=== PATIENT | male | born 1990 | race African-American/Black ===

== ENCOUNTER 2021-01-12 10:05 | Emergency (ER) | payer OTHER ==
--- NOTE | 2021-01-12 10:59 | EDM.PDOC ---
ED HPI GENERAL MEDICAL PROBLEM - General Chief Complaint: General Stated Complaint: SWELLING ABOVE THE KNEE DOWN Time Seen by Provider: 01/12/21 10:08 Source of Information: Reports: Patient History Limitations: Reports: No Limitations - History of Present Illness INITIAL COMMENTS - FREE TEXT/NARRATIVE: HISTORY AND PHYSICAL: History of present illness: Patient is a 30-year-old male, with a history of hypertension, who presents emergency room today with concern of bilateral lower extremity edema and pain x2 to 3 days. Patient states that he first noticed the swelling when he woke up 2 to 3 days ago and states that since then, the swelling has been getting worse and is now become painful. Patient states that he also has eczema and states that he has eczema overlying his legs but states that this is not new or changed. Patient states that he has noticed a little bit of redness on his inner thighs. Patient denies any trauma or injury. Patient denies any other symptoms or concerns. Patient states that he is on blood pressure medications but has not been taking these well over the past 2 weeks as he is "low on supply ". Denies orthopnea or PND. Denies cough. Patient denies fever, chills, chest pain, shortness of breath, or cough. Denies headache, neck stiff ness, change in vision, syncope, or near syncope. Denies nausea, vomiting, abdominal pain, diarrhea, constipation, or dysuria. Has not noted any blood in urine or stool. Patient has been eating and drinking appropriately. Review of systems: As per history of present illness and below otherwise all systems reviewed and negative. Past medical history: As per history of present illness and as reviewed below otherwise noncontributory. Surgical history: As per history of present illness and as reviewed below otherwise noncontributory. Social history: See social history for further information Family history: As per history of present illness and as reviewed below otherwise noncontribut ory. Physical exam: General: Patient is alert, oriented, and in no acute distress. Patient sitting comfortably on exam table. Vitals stable and reviewed by me. HEENT: Atraumatic, normocephalic, pupils equal and reactive bilaterally, negative for conjunctival pallor or scleral icterus, mucous membranes moist, TMs normal bilaterally, throat clear, neck supple, nontender, trachea midline. No drooling or trismus noted. No meningeal signs. No hot potato voice noted. Lungs: Clear to auscultation, breath sounds equal bilaterally, chest nontender. Heart: S1S2, regular rate and rhythm without overt murmur Abdomen: Soft, nondistended, nontender. Negative for masses or hepatosplenomegaly. Negative for costovertebral tenderness. Pelvis: Stable nontender. Genitourinary: Deferred. Rectal: Deferred. Skin: Intact, warm, dry. No lesions or rashes noted. Extremities: Bilateral 2+ pitting edema to the knees. DP/PT pulses intact via doppler bilaterally. Overlying diffuse eczema noted of the bilateral LE and UE with various areas of excoriation. Erythema difficult to assess due to eczema and darker skin complexion. Full ROM of bilateral extremities without pain or difficulty. Otherwise, Atraumatic, negative for cords or calf pain. Neurovascular unremarkable. Neuro: Awake, alert, oriented. Cranial nerves II through XII unremarkable. Cerebellum unremarkable. Motor and sensory unremarkable throughout. Exam nonfocal. Notes: Patient is a 30-year-old male who presents emergency room today secondary to 2 to 3-day history of bilateral lower extremity edema and pain. Upon arrival to the ED, patient is vitally stable and well-appearing on exam. Patient does have 2+ pitting edema of bilateral lower extremities to the knees but is otherwise neurovascularly intact. Patient does have overlying diffuse eczema of his lower extremities which does make assessment for erythema more difficult and patient is of darker complexion which is also limiting assessment for possible erythema, however, no increase in warmth noted on exam. Will obtain cardiac evaluation and bilateral LE US r/o DVT. See Dr. Lara's dictation for specific EKG interpretation. Otherwise, NSR without STEMI. CBC shows hemoglobin elevation at 12.9, eosinophil percent at 8.4 which is increased, otherwise mild arrangements of CBC unremarkable. CMP shows an elevation of BUN at 20, otherwise mild derangements of CMP unremarkable. Troponin negative. BNP within normal limits at 6. TSH mild elevation at 4.39 with free T4 WNL at .83. UA clear. Lower extremity Doppler ultrasound is negative bilateral lower extremity venous Doppler study. Edema in both calves noted with 2 prominent left inguinal nodes, likely reactive. Chest x-ray shows increased interstitial markings which may represent central bronchial thickening and or pulmonary vascular congestion. No dense consolidation appreciated. Upon reevaluation of patient, he remains vitally stable and comfortable throughout stay in ED. He does not have any chest pain or shortness of breath and is able to lay back and breathe without any difficulty. His lungs are clear on exam and BNP normal without cardiomegaly; CHF unlikely. Upon reevaluation of patient's lower extremity, he does have diffuse uncontrolled eczema with multiple excoriations of his lower extremities. It is difficult to assess for erythema due to patient's darker complexion and overlying eczema, however, possible cellulitis of his lower extremities. Will treat with Keflex for presumed cellulitis with close follow-up with his primary care provider for further evaluation. Strict return precautions thoroughly discussed with patient. Discussed importance for follow-up with a primary care provider. Voices understanding and is agreeable to plan of care. Denies any further questions or concerns at this time. Diagnostics: EKG, CBC, CMP, chest x-ray, UA, BNP, bilateral lower extremity Doppler ultrasound Therapeutics: None Prescription: Keflex Impression: Lower extremity edema, possible cellulitis, bilateral Eczema, diffuse Plan: 1. Take medication as prescribed. You can alternate ibuprofen and Tylenol as directed for pain and discomfort. 2. Follow-up with a primary care provider and snow shoveler as discussed. Return to the ED as needed and as discussed. 3. Elevate your feet as directed and as discussed. You can use [id number] foot/ankle compresses/wraps to help with symptoms as discussed. Definitive disposition and diagnosis as appropriate pending reevaluation and review of above. Bilateral Leg Pain Score (Numeric/FACES): 5 - Related Data Allergies Allergy/AdvReac Type Severity Reaction Status Date / Time No Known Allergies Allergy Verified 01/12/21 10:22 Home Meds: Home Meds Amlodipine Besylate/Valsartan [Amlodipine-Valsartan 10-320 mg] 1 tab PO DAILY 01/12/21 [History] cephALEXin [Keflex] 500 mg PO Q8H 10 Days #30 cap 01/12/21 [Rx] hydroCHLOROthiazide [Hydrochlorothiazide] 25 mg PO DAILY 01/12/21 [History] Past Medical History HEENT History: Reports: None Cardiovascular History: Reports: Hypertension Respiratory History: Reports: None Gastrointestinal History: Reports: None Genitourinary History: Reports: None Musculoskeletal History: Reports: None Neurological History: Reports: None Endocrine/Metabolic History: Reports: None Hematologic History: Reports: None Immunologic History: Reports: None Oncologic (Cancer) History: Reports: None Dermatologic History: Reports: None - Infectious Disease History Infectious Disease History: Reports: None - Past Surgical History Head Surgeries/Procedures: Reports: None Cardiovascular Surgical History: Reports: None Male Surgical History: Reports: None Neurological Surgical History: Reports: None Musculoskeletal Surgical History: Reports: None Oncologic Surgical History: Reports: None Dermatological Surgical History: Reports: None Social & Family History - Family History Family Medical History: No Pertinent Family History - Tobacco Use Tobacco Use Status *Q: Light Tobacco User Years of Tobacco use: 3 Packs/Tins Daily: 1 - Caffeine Use Caffeine Use: Reports: Coffee, Soda - Recreational Drug Use Recreational Drug Use: No ED ROS GENERAL - Review of Systems Review Of Systems: Comprehensive ROS is negative, except as noted in HPI. ED EXAM, GENERAL - Physical Exam Exam: See Below (see dictation) Course - Vital Signs Last Recorded V/S: Last Vital Signs Temp 98.0 F 01/12/21 10:53 Pulse 74 01/12/21 12:06 Resp 15 01/12/21 12:06 BP 135/85 01/12/21 12:06 Pulse Ox 99 01/12/21 12:06 - Orders/Labs/Meds Labs: Laboratory Tests 01/12/21 01/12/21 01/12/21 Range/Units 10:59 10:59 10:59 WBC 10.25 (4.0-11.0) K/uL RBC 4.74 (4.50-5.90) M/uL Hgb 12.9 L (13.0-17.0) g/dL Hct 39.0 (38.0-50.0) % MCV 82.3 (80.0-98.0) fL MCH 27.2 (27.0-32.0) pg MCHC 33.1 (31.0-37.0) g/dL RDW Std Deviation 42.0 (28.0-62.0) fl RDW Coeff of Fatmata 14 (11.0-15.0) % Plt Count 350 (150-400) K/uL MPV 11.50 (7.40-12.00) fL Neut % (Auto) 59.6 (48.0-80.0) % Lymph % (Auto) 23.8 (16.0-40.0) % Bay % (Auto) 7.7 (0.0-15.0) % Eos % (Auto) 8.4 H (0.0-7.0) % Baso % (Auto) 0.5 (0.0-1.5) % Neut # (Auto) 6.1 H (1.4-5.7) K/uL Lymph # (Auto) 2.4 (0.6-2.4) K/uL Bay # (Auto) 0.8 (0.0-0.8) K/uL Eos # (Auto) 0.9 H (0.0-0.7) K/uL Baso # (Auto) 0.1 (0.0-0.1) K/uL Nucleated RBC % 0.0 /100WBC Nucleated RBCs # 0 K/uL Sodium 136 (136-148) mmol/L Potassium 3.7 (3.5-5.1) mmol/L Chloride 100 (98-107) mmol/L Carbon Dioxide 31.8 (21.0-32.0) mmol/L BUN 20 H (7.0-18.0) mg/dL Creatinine 1.2 (0.8-1.3) mg/dL Est Cr Clr Drug Dosing 95.87 mL/min Estimated GFR (MDRD) > 60.0 ml/min Glucose 101 (74-106) mg/dL Calcium 9.8 (8.5-10.1) mg/dL Total Bilirubin 0.2 (0.2-1.0) mg/dL AST 32 (15-37) IU/L ALT 31 (14-63) IU/L Alkaline Phosphatase 106 (46-116) U/L Troponin I < 0.050 (0.000-0.056) ng/mL B-Natriuretic Peptide 6 (<100) PG/ML Total Protein 8.0 (6.4-8.2) g/dL Albumin 3.5 (3.4-5.0) g/dL Globulin 4.5 H (2.6-4.0) g/dL Albumin/Globulin Ratio 0.8 L (0.9-1.6) Free T4 0.83 (0.76-1.46) ng/dL TSH, Ultra Sensitive 4.39 H (0.36-3.74) uIU/mL Urine Color Urine Appearance Urine pH (5.0-8.0) Ur Specific [place] (1.001-1.035) Urine Protein (NEGATIVE) mg/dL Urine Glucose (UA) (NEGATIVE) mg/dL Urine Ketones (NEGATIVE) mg/dL Urine Occult Blood (NEGATIVE) Urine Nitrite (NEGATIVE) Urine Bilirubin (NEGATIVE) Urine Urobilinogen (<2.0) EU/dL Ur Leukocyte Esterase (NEGATIVE) 01/12/21 Range/Units 12:00 WBC (4.0-11.0) K/uL RBC (4.50-5.90) M/uL Hgb (13.0-17.0) g/dL Hct (38.0-50.0) % MCV (80.0-98.0) fL MCH (27.0-32.0) pg MCHC (31.0-37.0) g/dL RDW Std Deviation (28.0-62.0) fl RDW Coeff of Fatmata (11.0-15.0) % Plt Count (150-400) K/uL MPV (7.40-12.00) fL Neut % (Auto) (48.0-80.0) % Lymph % (Auto) (16.0-40.0) % Bay % (Auto) (0.0-15.0) % Eos % (Auto) (0.0-7.0) % Baso % (Auto) (0.0-1.5) % Neut # (Auto) (1.4-5.7) K/uL Lymph # (Auto) (0.6-2.4) K/uL Bay # (Auto) (0.0-0.8) K/uL Eos # (Auto) (0.0-0.7) K/uL Baso # (Auto) (0.0-0.1) K/uL Nucleated RBC % /100WBC Nucleated RBCs # K/uL Sodium (136-148) mmol/L Potassium (3.5-5.1) mmol/L Chloride (98-107) mmol/L Carbon Dioxide (21.0-32.0) mmol/L BUN (7.0-18.0) mg/dL Creatinine (0.8-1.3) mg/dL Est Cr Clr Drug Dosing mL/min Estimated GFR (MDRD) ml/min Glucose (74-106) mg/dL Calcium (8.5-10.1) mg/dL Total Bilirubin (0.2-1.0) mg/dL AST (15-37) IU/L ALT (14-63) IU/L Alkaline Phosphatase (46-116) U/L Troponin I (0.000-0.056) ng/mL B-Natriuretic Peptide (<100) PG/ML Total Protein (6.4-8.2) g/dL Albumin (3.4-5.0) g/dL Globulin (2.6-4.0) g/dL Albumin/Globulin Ratio (0.9-1.6) Free T4 (0.76-1.46) ng/dL TSH, Ultra Sensitive (0.36-3.74) uIU/mL Urine Color YELLOW Urine Appearance CLEAR Urine pH 6.0 (5.0-8.0) Ur Specific [place] 1.020 (1.001-1.035) Urine Protein NEGATIVE (NEGATIVE) mg/dL Urine Glucose (UA) NEGATIVE (NEGATIVE) mg/dL Urine Ketones NEGATIVE (NEGATIVE) mg/dL Urine Occult Blood NEGATIVE (NEGATIVE) Urine Nitrite NEGATIVE (NEGATIVE) Urine Bilirubin NEGATIVE (NEGATIVE) Urine Urobilinogen 0.2 (<2.0) EU/dL Ur Leukocyte Esterase NEGATIVE (NEGATIVE) Departure - Departure Time of Disposition: 12:34 Disposition: Home, Self-Care 01 Clinical Impression: Lower extremity edema Cellulitis Qualifiers: Site of cellulitis: extremity Site of cellulitis of extremity: lower extremity Laterality: unspecified laterality Qualified Code(s): L03.119 - Cellulitis of unspecified part of limb - Discharge Information Prescriptions: cephALEXin [Keflex] 500 mg PO Q8H 10 Days #30 cap Instructions: Peripheral Edema Referrals: PCP,None [Primary Care Provider] - Forms: ED Department Discharge Additional Instructions: The following information is given to patients seen in the emergency department who are being discharged to home. This information is to outline your options for follow-up care. We provide all patients seen in our emergency department with a follow-up referral. The need for follow-up, as well as the timing and circumstances, are variable depending upon the specifics of your emergency department visit. If you don't have a primary care physician on staff, we will provide you with a referral. We always advise you to contact your personal physician following an emergency department visit to inform them of the circumstance of the visit and for follow-up with them and/or the need for any referrals to a consulting specialist. The emergency department will also refer you to a specialist when appropriate. This referral assures that you have the opportunity for follow-up care with a specialist. All of these measure are taken in an effort to provide you with optimal care, which includes your follow-up. Under all circumstances we always encourage you to contact your private physician who remains a resource for coordinating your care. When calling for follow-up care, please make the office aware that this follow-up is from your recent emergency room visit. If for any reason you are refused follow-up, please contact the [facility] Emergency Department at and asked to speak to the emergency department charge nurse. [facility] [address] [place] [address] [place] [address] 1. Take medication as prescribed. You can alternate ibuprofen and Tylenol as directed for pain and discomfort. 2. Follow-up with a primary care provider and snow shoveler as discussed. Return to the ED as needed and as discussed. 3. Elevate your feet as directed and as discussed. You can use [id number] foot/ankle compresses/wraps to help with symptoms as discussed. Sepsis Event Note (ED) - Focused Exam Vital Signs: Vital Signs Temp Pulse Resp BP Pulse Ox 01/12/21 12:06 74 15 135/85 99 01/12/21 10:53 98.0 F 89 15 135/80 97 01/12/21 10:28 98 F 89 15 135/80 97
[2021-01-12 11:43] LABS: BLOOD UREA NITROGEN,BUN 20 mg/dL (7.0-18.0); CARBON DIOXIDE,CO2 31.8 mmol/L (21.0-32.0); CHLORIDE,CL 100 mmol/L (98-107); GLUCOSE RANDOM 101 mg/dL (74-106); POTASSIUM,K 3.7 mmol/L (3.5-5.1); SODIUM,NA 136 mmol/L (136-148)
--- NOTE | 2021-01-12 12:12 | CR ---
Indication: Lower extremity edema Comparison: None available. Technique: Single AP view chest Findings: There are overall increased interstitial markings. There is no focal consolidation, effusion, or pneumothorax. The cardiomediastinal silhouette is within normal limits. The bony thorax is grossly intact. Impression: Increased interstitial markings which may represent central bronchial thickening and/or pulmonary vascular congestion. No dense consolidation is appreciated. Dictated by Frank Ltuher MD @ 01/12/2021 12:11:39 PM (Electronically Signed)
--- NOTE | 2021-01-12 12:31 | US ---
INDICATION: Bilateral leg edema, erythema and pain. TECHNIQUE: Grayscale two-dimensional ultrasound without and with compression as well as color-flow and spectral Doppler of the lower extremity veins bilaterally. COMPARISON: None. FINDINGS: Normal compressibility of and flow within the common femoral, superficial femoral, popliteal, posterior tibial, profunda, and greater saphenous veins is demonstrated bilaterally. No thrombus is identified. Soft tissue edema is noted in both calves. Two prominent left inguinal lymph nodes are demonstrated and are likely reactive. IMPRESSION: 1. Negative bilateral lower extremity venous Doppler study. Edema in both calves noted. 2. Two prominent left inguinal lymph nodes, likely reactive. Dictated by Regan Ornelas MD @ 01/12/2021 12:30:28 PM (Electronically Signed)
--- NOTE | 2021-01-12 12:56 | PCM.EKG ---
#1 Interpretation EKG Date: 01/12/21 Time: 12:49 Rhythm: NSR Rate (Beats/Min): 78 [place]: LAD-Left [place] Deviation P-Wave: Present QRS: Normal ST-T: Normal QT: Normal Comparison: NA - No Prior EKG EKG Interpretation Comments: Sinus rhythm with nonspecific T wave inversion leads III, avF
== END 2021-01-12 13:01 | disposition home or self-care (01) ==
LOC: MW.ED 10:05
DX: L03.115 Cellulitis of right lower limb (principal); L03.116 Cellulitis of left lower limb; R60.0 Localized edema; L30.9 Dermatitis, unspecified; I10 Essential (primary) hypertension; Z72.0 Tobacco use
CPT/HCPCS: 36415; 71045; 71045-26; 80053; 81003; 83880; 84439; 84443; 84484; 85025; 93005; 93970; 93970-26; 99284-25